=== PATIENT | female | born 1975 | race Caucasian/White ===

== ENCOUNTER 2023-08-22 00:23 | Emergency (ER) | payer BC, OTHER ==
[~2023-08-22] VITALS: Ht 175.3 cm; Wt 84.4 kg
[2023-08-22 00:29] VITALS: TEMP 98
[2023-08-22] MEDS ORDERED: ondansetron 4mg rapidly disintigrating tab PO ONE (00:35)
[2023-08-22] MEDS ORDERED: ketorolac tromethamine 15mg/ml inj. IM ONE (01:20)
[2023-08-22 01:28] LABS: BILIRUBIN,URINE NEGATIVE (Neg); CLARITY,URINE SLIGHTLY CLOUDY (Clear); COLOR,URINE YELLOW (Yellow); GLUCOSE, URINE NEGATIVE (Neg); KETONES,URINE 15 mg/dl (Neg); LEUKOCYTE ESTERASE ,URINE NEGATIVE (Neg); NITRITES, URINE NEGATIVE (Neg); OCCULT BLOOD,URINE NEGATIVE (Neg); PROTEIN,URINE NEGATIVE (Neg); UROBILINOGEN,URINE 0.2 E.U/dL (0.2-1.0)
[2023-08-22 01:30] LABS: URINE HCG NEGATIVE (NEG)
[2023-08-22 01:33] LABS: BASOPHILS % (AUTO) 0.4 % (0-1); EOSINOPHILS % (AUTO) 0.5 % (0-6); HEMATOCRIT 38.7 % (35.0-45.0); LYMPHOCYTES # (AUTO) 0.8 X10'3 (1.1-4.8); LYMPHOCYTES % (AUTO) 8.2 % (21-51); MEAN CORPUSCULAR HEMOGLOBIN 31.1 PG (27.0-31.0); MEAN CORPUSCULAR HGB CONC 33.7 g/dL (33.0-36.5); MEAN CORPUSCULAR VOLUME 92.2 FL (78-98); MONOCYTES # (AUTO) 0.5 X10'3 (0-0.9); MONOCYTES % (AUTO) 5.6 % (2-12); NEUTROPHILS # (AUTO) 8.2 X10'3 (1.8-7.7); NEUTROPHILS % (AUTO) 85.3 % (42-75); PLATELET COUNT 273 X10'3 (140-440); RED CELL DISTRIBUTION WIDTH 13.2 % (11.5-14.5); WHITE BLOOD COUNT 9.6 X10'3 (4.5-11.0)
[2023-08-22 01:35] LABS: SQUAMOUS EPITHELIAL CELL,UR MANY /LPF (FEW); UA COLLECTION TYPE CLN CATCH MIDSTREAM
[2023-08-22] MEDS ORDERED: ketorolac trometh inj. 60 MG/2 ML VIAL IM ONE (01:35)
[2023-08-22 01:36] LABS: BACTERIA,URINE 3+ /HPF (Neg); MUCUS STRANDS MANY /LPF (Neg)
[2023-08-22 01:37] LABS: RBC,URINE 0-2 /HPF (0-2); WBC,URINE 0-4 /HPF (0-4)
[2023-08-22 01:51] LABS: ALANINE AMINOTRANSFERASE 17 U/L (12-78); ALBUMIN/GLOBULIN RATIO 1.1 (1.1-1.5); ALKALINE PHOSPHATASE 60 IU/L (46-116); AMYLASE 47 U/L (25-115); ANION GAP 8 (8-16); ASPARTATE AMINO TRANSFERASE 18 U/L (10-37); BILIRUBIN,TOTAL 0.3 MG/DL (0.1-1.0); BLOOD UREA NITROGEN 10 MG/DL (7-18); BUN/CREATININE RATIO 14.3 (10.0-20.0); CALCIUM 9.2 MG/DL (8.5-10.1); CHLORIDE 101 MMOL/L (99-107); GLUCOSE 126 MG/DL (70-104); LIPASE 27 U/L (16-77); POTASSIUM 3.6 MMOL/L (3.5-5.1); SODIUM 137 MMOL/L (135-145); TOTAL CARBON DIOXIDE 27.6 MMOL/L (24-32); TOTAL PROTEIN 7.5 G/DL (6.4-8.2); eCRCL 105 ML/MIN; eGFR 90 ML/MIN
[2023-08-22 03:20] VITALS: BP 116/64; PULSE 71; RESP 15; O2SAT 95
== END 2023-08-22 03:21 | disposition home or self-care (01) ==
LOC: ER 00:24
DX: K80.20 Calculus of gallbladder without cholecystitis without obstruction (principal); R11.2 Nausea with vomiting, unspecified; R10.13 Epigastric pain; Z88.2 Allergy status to sulfonamides
CPT/HCPCS: 36415; 76700; 80053; 81001; 81025; 82150; 83690; 85025; 96372; 99285; J1885

== ENCOUNTER 2023-09-23 09:26 | Day surgery (SDC) | payer BC ==
[2023-09-23] VITALS (13 sets, daily range): BP systolic 118–138; BP diastolic 74–86; PULSE 58–94; RESP 12–16; TEMP 98.3; O2SAT 96–100
[~2023-09-23] VITALS: Ht 175.3 cm; Wt 84.7 kg
[~2023-09-23 09:26] MED LIST: ADV50250 INH; ESCI5TAB17 PO; INDOCYANINE GREEN 25 MG/10 ML VIAL IV ONE; TERB250T89 PO; albuterol 2.5 MG/3 ML nebule NEB ONE; cefazolin 2gm/D5W 100mL 100 ML IV ONE; famotidine 20mg tablet PO ONE; ringers solution, lacted 1,000 ML IV SCH
[2023-09-23] MEDS ORDERED: ketorolac trometh. 30mg/ml inj. IV ONE (10:45)
[2023-09-23] MEDS ORDERED: labetalol 20mg/4ml (5mg/ml) syringe IV PRN (10:45)
[2023-09-23] MEDS ORDERED: meperidine/PF 25mg/ml syringe IV PRN (10:45)
[2023-09-23] MEDS ORDERED: proCHLORperazine 10 MG/2 ml inj IV PRN (10:45)
[2023-09-23] MEDS ORDERED: acetaminophen 1,000mg/100ml IV 100 ML IV ONE (10:45)
[2023-09-23] MEDS ORDERED: hydrALAZINE 20mg/ml inj. IV PRN (10:45)
[2023-09-23] MEDS ORDERED: HYDROmorphone/PF 0.2 MG/ML SYRINGE IV PRN ×2 (10:45)
[2023-09-23] MEDS ORDERED: morphine 4 MG/ML inj SYRINge IV PRN (10:45)
[2023-09-23] MEDS ORDERED: ondansetron/PF 4mg/2ml inj IV PRN (10:45)
[2023-09-23] MEDS ORDERED: morphine 2 MG/ML inj. syringe IV PRN (10:45)
[2023-09-23] MEDS ORDERED: ringers solution, lacted 1,000 ML IV SCH (10:45)
[2023-09-23 10:51] LABS: BASOPHILS % (AUTO) 0.8 % (0-1); EOSINOPHILS # (AUTO) 0.2 X10'3 (0-0.9); EOSINOPHILS % (AUTO) 3.8 % (0-6); LYMPHOCYTES % (AUTO) 21.5 % (21-51); MEAN CORPUSCULAR HEMOGLOBIN 31.1 PG (27.0-31.0); MEAN CORPUSCULAR HGB CONC 33.3 g/dL (33.0-36.5); MEAN CORPUSCULAR VOLUME 93.3 FL (78-98); MONOCYTES # (AUTO) 0.4 X10'3 (0-0.9); MONOCYTES % (AUTO) 8.4 % (2-12); NEUTROPHILS % (AUTO) 65.5 % (42-75); PRE OP HEMATOCRIT 38.9 % (35.0-45.0); PRE OP PLATELET COUNT 237 X10'3 (140-440); PRE OP WHITE BLOOD COUNT 4.5 10'3 (4.8-10.8); RED BLOOD COUNT 4.17 X10'6 (4.20-5.60); RED CELL DISTRIBUTION WIDTH 13.4 % (11.5-14.5)
[2023-09-23 11:02] LABS: PREOP HCG, QL SERUM NEGATIVE (NEGATIVE)
[2023-09-23 11:05] LABS: ALBUMIN 3.8 G/DL (3.4-5.0); ALKALINE PHOSPHATASE 61 IU/L (46-116); BLOOD UREA NITROGEN 12 MG/DL (7-18); BUN/CREATININE RATIO 20.3 (10.0-20.0); CALCIUM 8.7 MG/DL (8.5-10.1); CHLORIDE 101 MMOL/L (99-107); CREATININE 0.59 MG/DL (0.40-0.90); PRE OP ALT 21 U/L (30-65); PRE OP ANION GAP 8 (8-16); PRE OP AST 21 U/L (10-37); PRE OP BILIRUB, TOTAL 0.4 MG/DL (0.0-1.0); PRE OP GLUCOSE 93 MG/DL (70-104); PRE OP POTASSIUM 3.8 MMOL/L (3.4-5.1); PRE OP SODIUM 135 MMOL/L (135-145); TOTAL CARBON DIOXIDE 25.8 MMOL/L (24-32); TOTAL PROTEIN 7.6 G/DL (6.4-8.2); eCRCL 125 ML/MIN; eGFR > 90 ML/MIN
[2023-09-23] MEDS ORDERED: BUPIVAcaine/PF 2.5mg/ml (0.25%) 10ml vial ONE (12:48)
[2023-09-23] MEDS ORDERED: LIDOcaine 1% 30ml preserv. free vial ONE (12:48)
[2023-09-23] MEDS ORDERED: midazolam 1 mg/ML 2ml injection ONE (12:55)
[2023-09-23] MEDS ORDERED: fentaNYL /PF 50mcg/ml 5ml ampule ONE (12:56)
[2023-09-23] MEDS ORDERED: sevoflurane 250ml liquid IH ONE (12:56)
[2023-09-23] MEDS ORDERED: LIDOcaine 2% (20mg/ml) 5ml vial ONE (13:19)
[2023-09-23] MEDS ORDERED: dexamethasone sod phosphate 4mg/ml inj. ONE (13:19)
[2023-09-23] MEDS ORDERED: propofol inj 20 ML IV ONE (13:19)
[2023-09-23] MEDS ORDERED: ondansetron/PF 4mg/2ml inj ONE (13:19)
[2023-09-23] MEDS ORDERED: rocuronium 10mg/ml inj IV ONE (13:19)
[2023-09-23] MEDS ORDERED: BUPIVAcaine/PF 2.5mg/ml (0.25%) 10ml vial IJ ONE (13:50)
[2023-09-23] MEDS ORDERED: LIDOcaine 1% 30ml preserv. free vial IJ ONE (13:51)
[2023-09-23] MEDS ORDERED: oxyCODONE/APAP 5-325mg tablet PO PRN (14:00)
[2023-09-23] MEDS ORDERED: glycopyrrolate 0.2mg/ml inj ONE (14:04)
[2023-09-23] MEDS ORDERED: neostigmine methylsulfate 1 MG/ML 10ml vial ONE (14:04)
== END 2023-09-23 16:02 | disposition home or self-care (01) ==
LOC: PAS 09:26
PROVIDERS: ATTEND Surgery
DX: K80.10 Calculus of gallbladder with chronic cholecystitis without obstruction (principal); F32.A Depression, unspecified; F41.9 Anxiety disorder, unspecified; J45.909 Unspecified asthma, uncomplicated; Z88.2 Allergy status to sulfonamides; Z79.899 Other long term (current) drug therapy; Z72.89 Other problems related to lifestyle; Z80.1 Family history of malignant neoplasm of trachea, bronchus and lung
CPT/HCPCS: 36415; 47563; 80053; 82948; 84703; 85025; J0131; J0690; J1100; J1885; J2250; J2405; J2704; J2710; J3010; J3490; J7030; J7120; S2900; Z7506; Z7508; Z7512; A4215; A4618; A7000